=== PATIENT | female | born 1945 | race Caucasian/White ===

== ENCOUNTER 2018-01-16 17:11 | Emergency (ER) | payer OTHER ==
[2018-01-16 17:13] VITALS: BP 166/75; PULSE 74; RESP 20; TEMP 98.6; O2SAT 96
[2018-01-16] MEDS ORDERED: BUTA1CAP PO (17:28)
[2018-01-16] MEDS ORDERED: PAXI20TA26 PO (17:28)
[2018-01-16] MEDS ORDERED: XANA1TAB2 PO (17:28)
--- NOTE | 2018-01-16 17:49 | PD ---
HPI Chief Complaint: Skin Problem Time Seen by Provider: 17:45 Travel History International Travel<30 days: No Contact w/Intl Traveler<30days: No Traveled to known affect area: No History of Present Illness HPI 72-year-old female patient presents to the ER today because she has noticed a spot on her right ankle area which has been hurting for the last 2 days, she states that it feels like a swollen. She denies any injury to the area or any cuts to the area. She denies any fevers, chest pains, shortness of breath, or any other symptoms. On further questioning, she states she is from [place] but has been here for a month. She states that she does have varicose veins and she states that her mother had problems with DVTs. Modifying Factors: None Associated Signs & Symptoms: Right lower leg area of redness and swelling and pain Risk Factors: Family history of DVT PFSH Past Medical History Anxiety: Yes Diminished Hearing: No Headaches: Yes Influenza Vaccination: Yes ?: Not Past Surgical History Hysterectomy: Yes Social History Alcohol Use: Yes Tobacco Use: No Allergies-Medications (Allergen,Severity, Reaction): Coded Allergies: No Known Allergies (Verified Allergy, Unknown, 01/16/18) Reported Meds & Prescriptions Reported Meds & Active Scripts Active Reported Fioricet (Itiagzotdi-Meitelzmbylak-Qckjcojr) 50-300-40 Mg Cap 1 Cap PO Q4H PRN Paxil (Paroxetine HCl) 20 Mg Tablet 20 Mg PO HS Xanax (Alprazolam) 1 Mg Tab 1 Mg PO HS PRN Review of Systems Except as stated in HPI: all other systems reviewed are Neg Physical Exam Narrative GENERAL: Pleasant well-developed elderly female patient currently in no acute distress. Awake and oriented 3. SKIN: Focused skin assessment warm/dry. HEAD: Atraumatic. Normocephalic. EYES: Pupils equal and round. No scleral icterus. No injection or drainage. ENT: No nasal bleeding or discharge. Mucous membranes pink and moist. NECK: Trachea midline. No JVD. CARDIOVASCULAR: Regular rate and rhythm. No murmur appreciated. RESPIRATORY: No accessory muscle use. Clear to auscultation. Breath sounds equal bilaterally. GASTROINTESTINAL: Abdomen soft, non-tender, nondistended. Hepatic and splenic margins not palpable. MUSCULOSKELETAL: No obvious deformities. No clubbing. No cyanosis. No edema. Right ankle: There is notable 3 cm area of erythema and induration, mildly tender to palpation. No underlying fluctuance. NEUROLOGICAL: Awake and alert. No obvious cranial nerve deficits. Motor grossly within normal limits. Normal speech. PSYCHIATRIC: Appropriate mood and affect; insight and judgment normal. Data Data Last Documented VS Vital Signs Date Time Temp Pulse Resp B/P (MAP) Pulse Ox O2 Delivery O2 Flow Rate FiO2 01/16/18 18:56 69 16 153/78 (103) 95 Room Air 01/16/18 17:13 98.6 Orders Orders Us Leg Venous Doppler (01/16/18 17:45) [facility] Medical Decision Making Medical Screen Exam Complete: Yes Emergency Medical Condition: Yes Medical Record Reviewed: Yes Differential Diagnosis Cellulitis versus DVT versus varicose veins Narrative Course Ultrasound shows no signs of DVT. She does have thrombosed varicose veins in that area which is suspect is causing her the current discomfort. At this point , my plan would be to release her with symptomatic relief or pain and follow-up to primary care doctor. Return for any worsening in symptoms as needed. The plan has been discussed with her and she states understanding. Diagnosis Primary Impression: Varicose vein of leg Med/Other Pt SpecificInfo: Prescription(s) given Scripts Ibuprofen (Ibuprofen) 600 Mg Tab 600 MG PO Q6H Y for Pain/Inflammation, #20 TAB 0 Refills Prov: Soraya Burns MD 01/16/18 Disposition: 01 DISCHARGE HOME Condition: Stable Soraya Burns MD Jan 16, 2018 17:49
[2018-01-16 18:56] VITALS: BP 153/78; PULSE 69; RESP 16; O2SAT 95
--- NOTE | 2018-01-16 18:57 | RADRPT ---
EXAM DATE/TIME: 01/16/2018 18:30 [place] COMPARISON: No previous studies available for comparison. INDICATIONS : Right ankle pain. MEDICAL HISTORY : None. SURGICAL HISTORY : None. ENCOUNTER: Initial ACUITY: 1 day PAIN SCORE: 5/10 LOCATION: Right leg. TECHNIQUE: Venous ultrasound of the leg was performed from the inguinal ligament to the proximal calf. Real-clement e, color Doppler and spectral tracing, compression and augmentation techniques were used. FINDINGS: There is normal compressibility of the deep venous system from the inguinal region to the proximal ca lf. No echogenic clot is seen in the lumen of the common femoral, femoral, popliteal, and posterior tibial veins. There is a normal response of the venous system to proximal and distal augmentation an d respiration. Focally thrombosed subcutaneous venous varicosities at the level of the ankle noted. CONCLUSION: 1. There is no DVT of the right lower extremity. 2. Focally thrombosed subcutaneous varicosities at the level of the ankle. Maxime Painting MD on January 16, 2018 at 18:53 Board Certified Radiologist. This report was verified electronically.
[2018-01-16] MEDS ORDERED: IBUP-232 PO (19:06)
== END 2018-01-16 19:17 | disposition home or self-care (01) ==
LOC: PHED 17:11
DX: I83.91 Asymptomatic varicose veins of right lower extremity (principal); F41.9 Anxiety disorder, unspecified; Z79.899 Other long term (current) drug therapy
CPT/HCPCS: 93971; 99284